=== PATIENT | female | born 1975 ===

== ENCOUNTER 2022-04-06 11:28 | Emergency (ER) | payer MEDICARE, MEDICAID ==
[~2022-04-06] VITALS: Ht 165.1 cm; Wt 109.1 kg
[2022-04-06 11:47] VITALS: BP 148/97
== END 2022-04-06 16:09 | disposition left against medical advice (07) ==
LOC: ER 11:29
DX: M79.604 Pain in right leg (principal); Z53.21 Procedure and treatment not carried out due to patient leaving prior to being seen by health care provider